=== PATIENT | male | born 1945 | race Caucasian/White ===

== ENCOUNTER 2016-06-20 10:46 | Emergency (ER) | payer MEDICARE, SELFPAY ==
--- NOTE | 2016-06-26 14:37 | ER ---
ADMIT: 06/20/2016 RM/LOC: [facility] MR#: [id number] [facility] [address] [place], [place] [id number] [address] [place] [id number] Emergency Room Report SEX: M AGE: 71 : 1945 DATE: 06/20/2016 ADDENDUM: CHIEF COMPLAINT: No bowel movement for 1 week. HISTORY OF PRESENT ILLNESS: This 71-year-old who said he has not had a bowel movement for a week now. He just says it feels like he is full, he is having a little bit of left lower quadrant abdominal pain. He said, he does have history of diverticulosis, but no history of diverticulitis. He rates his pain at 0/10, but he says the pain is intermittent and comes goes. PAST MEDICAL HISTORY: History of a pacer and diverticulosis, but no diverticulitis. MEDICATIONS: None. ALLERGIES: NO KNOWN ALLERGIES. SOCIAL HISTORY: Denies any tobacco or drug use, but does drink alcohol occasionally. FAMILY HISTORY: Noncontributory. REVIEW OF SYSTEMS: CONSTITUTIONAL: Denies any fevers, chills, or sweats. CARDIOVASCULAR and RESPIRATORY: Denies any chest pain or shortness of breath. GI and : Denies any nausea, vomiting, diarrhea. Has not had a bowel movement for 1 week. All systems otherwise negative. PHYSICAL EXAMINATION: VITAL SIGNS: Blood pressure 123/79, pulse is 71, respirations 18, temp is 97.3 tympanic, and saturation of oxygen is 100% on room air. GENERAL APPEARANCE: He is in no acute distress. Alert. HEENT: Pharynx is moist. No tonsillar swelling or exudate. NECK: Supple. HEART: Regular rate and rhythm. LUNGS: CTA bilaterally. No wheezes, rales, or rhonchi. ABDOMEN: Soft. Minimal tenderness in the left upper and lower quadrant. No distention. No rebound. ADMIT: 06/20/2016 RM/LOC: [facility] MR#: [id number] [address] [id number] FERNA[address]O ALCOCER [address] [place] [address] Emergency Room Report SEX: M AGE: 71 : 1945 SKIN: Normal color, warm, and dry. No rashes noted. NEURO and PSYCH: He is alert and oriented x3. Mood and affect normal. COURSE IN THE EMERGENCY ROOM: CBC, BMP, and CT of his abdomen was done. CT shows a small amount of constipation with a small amount of inflammatory changes, this could be early diverticulitis. CBC was normal. BMP is normal. I sent him home with magnesium citrate to help him have a bowel movement. Also with Cipro and Flagyl for early diverticulitis. Told him to push fluids. Take Tylenol for pain and follow up with primary care physician in 1 week to be rechecked. I did tell him also that his bladder looks slightly thickened on CAT scan and this is something that also needs follow up. CLINICAL IMPRESSION: Constipation with early diverticulitis. BERNIE Naranjo / Krishna Auguste MD / dalial JOB #: [id number] CC: Krishna Auguste MD, Attending Physician
== END 2016-06-20 13:44 | disposition home or self-care (01) ==
LOC: ER 10:46
DX: K59.00 Constipation, unspecified (principal)